=== PATIENT | female | born 1975 | race Caucasian/White ===

== ENCOUNTER → 2022-05-18 | Outpatient (CLI) | payer SELFPAY ==
--- NOTE | 2022-05-18 | BRBX_PTH ---
PATIENT: KATIA CHAN LOC: [facility] U#:[id number] AGE/SX: 47/F ROOM: RE05/18/[address]: Dr. Concha Richard MD : 1975 BED: DIS: 05/18/2022 SPEC #: [id number] RECD: 05/18/22 13:46 STATUS: JULIO RESushma #: [id number] CHRISTOPHER: 05/18/22 00:[address]: Concha Richard DEPT: SURGICAL PATHOLOGY RECD BY: Ayan Matthews ENTERED: 05/18/22 13:47 SP TYPE: BREAST BX OTHR DR: Dr. Evelio Knight MD Tissues: A - Right breast, NOS B - Right breast, NOS C - Right breast, NOS Procedures: Surgery Specimen Level IV HEADER OPERATION: Right breast biopsy PRE-OP DIAGNOSIS: Right breast mass x3 TISSUE SUBMITTED: A ? 10 o?clock, 5 cm from nipple, B ? 8 o?clock, 3 cm from nipple, C ? 6 o?clock, 3?cm from nipple ISCHEMIC TIME: 1 minute FIXATION TIME: 7.5 hours MICROSCOPIC DIAGNOSIS A. Right breast, 10 o?clock, 5 cm from nipple, core biopsy: Fragments of benign breast tissue with focal dense fibrosis. Negative for atypia or malignancy. See comment. B. Right breast, 8 o?clock, 3 cm from nipple, core biopsy: Fragments of benign breast tissue with focal dense fibrosis. Negative for atypia or malignancy. C. Right breast, 6 o?clock, 3 cm from nipple, core biopsy: Fragments of benign breast tissue with focal dense fibrosis. Negative for atypia or malignancy. SJ:dayami 05/19/2022 COMMENT A. A few minute detached fragments of apocrine metaplastic cells are also noted. Correlation with clinical, radiologic findings and appropriate follow up are necessary. MICROSCOPIC DESCRIPTION Slides are reviewed. GROSS DESCRIPTION A - Received in fixative is one container labeled with the patient's name and designated right breast 10 o?clock. The specimen consists of multiple elongated fragments of thomas-yellow fibroadipose tissue that in aggregate measure 1.5 x 0.3 x 0.1 cm. The entire specimen is submitted in one cassette. B - Received in fixative is one container labeled with the patient's name and designated right breast 8 o?clock. The specimen consists of multiple elongated fragments of thomas-yellow fibroadipose tissue that in aggregate measure 1.5 x 0.2 x 0.1 cm. The entire specimen is submitted in one cassette. C - Received in fixative is one container labeled with the patient's name and designated right breast 6 o?clock. The specimen consists of multiple elongated fragments of thomas-yellow fibroadipose tissue that in aggregate measure 1.5 x 0.5 x 0.1 cm. The entire specimen is submitted in one cassette. / SHAHEED:dayami 05/18/2022 TC:5 CPT: 34117 x3
--- NOTE | 2022-05-18 12:00 | US_ITS ---
STUDY: ULTRASOUND BREAST - RIGHT REASON FOR EXAM: Female, 47 years old. Biopsy of the right breast mass. TECHNIQUE: Axial and longitudinal images of the RIGHT breast were performed with a high resolution ultrasound transducer. # OF IMAGES: 51 COMPARISON: Comparison is made with prior outside examination dated 05/09/2022. FINDINGS: RIGHT Breast: Under direct sonographic guidance, the surgeon performed core biopsy of a solid nodule at the 10 o''clock position of the breast of 5 cm from the nipple. The nodule measures 1.4 cm x 1.2 cm x 0.6 cm. A second core biopsy of a nodule at the 8 o''clock position of the breast at 3 cm from the nipple was performed. A third nodule was biopsied measuring 1 cm x 1.2 cm x 2.4 cm at the 6 o''clock position of the breast at 3 cm from the nipple. US/US Breast Biopsy 1st Lesion IMPRESSION: Ultrasound guided core biopsies of 3 nodular densities in the right breast. ASSESSMENT CATEGORY: BIRADS Category 2: Benign. A letter regarding these results will be sent to the patient by the facility within 30 days. Electronically Signed: Sheldon Valverde MD at 14:44 EST ,
--- NOTE | 2022-05-18 13:08 | PCM.OPRPT ---
Report of Operation Date of Procedure: 05/18/22 Pre-Operative Diagnosis: Right breast mass x3 Post-Operative Diagnosis: Same Surgery/Procedure Performed:: Ultrasound-guided right breast biopsy x3 Surgeon: Concha Richard Type of Anesthesia: Local Specimen's removed: 1. Right breast mass 10:00 5 cm from nipple 2. Right breast mass 8:00 3 cm from the nipple 3. Right breast mass 6:00 3 cm from the nipple Estimated Blood Loss (mL): minimal Description of Procedure: Procedure: Right ultrasound-guided core biopsy x 3 Indications: 47 year-old female with 3 hypoechoic nodules at 10:00 5 cm from nipple, 8:00 3 cm from nipple, 6:00 3 cm from the nipple in the right breast. Risk benefits were discussed the patient and she elected to proceed with ultrasound guided core biopsy with clip placement Description of procedure: Patient was brought into the ultrasound room in the right breast was marked?previous ultrasound did show the 10:00 and 6:00; however the 8:00 lesion was found during this ultrasound. A timeout was completed verifying correct patient, procedure, site, specially, prior to beginning procedure. The right breast was prepped and draped in usual sterile fashion and using local anesthesia was obtained with 1% lidocaine with epi. All lesions were done similarly. The 8:00 and 6:00 lesions were done through the same skin incision. The lesions were located with the ultrasound. Small incision was made with 11 blade to introduced the BARD MaxCore through the skin. Under ultrasound guidance multiple core samples were obtained using then 14-gauge BARD MaxCore and sent in formalin for pathology. The mammotome mammostar clip/Bard dual ultra (10:00 5 cm from nipple?mamma star, 8:00 3 cm from the nipple?Bard coil, 6:00 3 cm from the nipple?Bard ribbon) were then deployed into the biopsy cavity under ultrasound guidance and a picture was taken. Upon completion procedure hemostasis was obtained and a Steri-Strip and OpSite were placed. Patient was then taken to the mammography suite for clip verification. The clip was verified. The patient tolerated the procedure well and was discharged from the breast imaging department good condition. complications: none Complications none
== END | disposition home or self-care (01) ==
PROVIDERS: PCP Family Medicine; Visit Provider Surgery
DX: N63.10 Unspecified lump in the right breast, unspecified quadrant (principal)
CPT/HCPCS: 19083; 19084; 88305